=== PATIENT | female | born 1995 | race American Indian/Alaskan Native ===

== ENCOUNTER 2017-05-22 18:47 | Emergency (ER) | payer MEDICAID, OTHER ==
[2017-05-22 19:09] VITALS: BMI 34.9
[2017-05-22 21:26] VITALS: BP 128/68; PULSE 83; RESP 17; TEMP 98.6; O2SAT 98
--- NOTE | 2017-05-23 01:38 | ED PDOC ---
Arrival/HPI - General Chief Complaint: Abdominal Pain Time Seen by Provider: 05/22/17 20:14 Historian: Patient - History of Present Illness Narrative History of Present Illness (Text): 05/23/17 20:13 A 22 year old female, whose past medical history includes bronchitis and asthma , presents to the emergency department complaining of left anterior rib pain for 2 days. Patient reports she applied heat to pain area and it helped slightly. Afterwards, patient took Ibuprofen, which aided in relieving some pain. Patient denies any shortness of breath, cough, trauma, or any other complaints. No PMD Time/Duration: < week (2 days ago) Symptom Onset: Sudden Symptom Course: Unchanged Past Medical History - Provider Review Nursing Documentation Reviewed: Yes - Infectious Disease Hx of Infectious Diseases: None - Pulmonary Hx Asthma: Yes Hx Bronchitis: Yes - Psychiatric Hx Substance Use: Yes - Anesthesia Hx Anesthesia: No Family/Social History - Physician Review Nursing Documentation Reviewed: Yes Family/Social History: No Known Family HX Smoking Status: Current Some Days Smoker Hx Alcohol Use: Yes Frequency of alcohol use: Socially Hx Substance Use: Yes Substance used: marijuana Allergies/Home Meds Allergies/Adverse Reactions: Allergies No Known Allergies Allergy (Verified 05/22/17 19:08) Review of Systems - Physician Review All systems were reviewed & negative as marked: Yes - Review of Systems Constitutional: absent: Other (no trauma) Respiratory: absent: SOB, Cough Musculoskeletal: Other (left anterior rib pain) Physical Exam Vital Signs Reviewed: Yes Vital Signs Temp Pulse Resp BP Pulse Ox 05/22/17 21:24 98.6 F 83 17 128/68 98 05/22/17 19:11 98.7 F 81 18 124/72 97 Temperature: Afebrile Blood Pressure: Normal Pulse: Regular Respiratory Rate: Normal Appearance: Positive for: Well-Appearing Pain Distress: None Mental Status: Positive for: Alert and Oriented X 3 - Systems Exam Neck: Present: Normal Range of Motion Respiratory/Chest: Present: Clear to Auscultation, Good Air Exchange. No: Respiratory Distress, Accessory Muscle Use Cardiovascular: Present: Regular Rate and Rhythm, Normal S1, S2. No: Murmurs Abdomen: Present: Normal Bowel Sounds. No: Tenderness, Distention, Peritoneal Signs Back: Present: Normal Inspection Upper Extremity: Present: Tenderness (tenderness to 9th and 10th rib on anterior left side) Lower Extremity: Present: Normal Inspection. No: Edema Neurological: Present: GCS=15, CN II-XII Intact, Speech Normal Skin: Present: Warm, Dry, Normal Color. No: Rashes Psychiatric: Present: Alert, Oriented x 3, Normal Insight, Normal Concentration Medical Decision Making ED Course and Treatment: 05/23/17 20:15 Impression: 22 year old female with left anterior rib pain. Physical exam shows tenderness to 9th and 10th rib on anterior left side; everything else on examination is normal. Plan: -- Left Ribs X-Ray -- Flexiril -- Motrin Tab -- Reassess and disposition Progress Notes: 05/23/17 21:25 Left Ribs X-Ray findings are negative, revealing no pneumothorax and no fracture. - RAD Interpretation Radiology Orders: 05/22/17 20:15 RIBS LEFT & PA CHEST [RAD] Stat - Medication Orders Current Medication Orders: Discontinued Medications Cyclobenzaprine HCl (Flexeril) 10 mg PO STAT STA Stop: 05/22/17 20:16 Last Admin: 05/22/17 20:26 Dose: 10 mg Ibuprofen (Motrin Tab) 600 mg PO STAT STA Stop: 05/22/17 20:16 Last Admin: 05/22/17 20:26 Dose: 600 mg - Scribe Statement The provider has reviewed the documentation as recorded by the Lois Wyatt Provider Scribe Attestation: All medical record entries made by the Scribe were at my direction and personally dictated by me. I have reviewed the chart and agree that the record accurately reflects my personal performance of the history, physical exam, medical decision making, and the department course for this patient. I have also personally directed, reviewed, and agree with the discharge instructions and disposition. Disposition/Present on Arrival - Present on Arrival Any Indicators Present on Arrival: No History of DVT/PE: No History of Uncontrolled Diabetes: No Urinary Catheter: No History of Decub. Ulcer: No History Surgical Site Infection Following: None - Disposition Have Diagnosis and Disposition been Completed?: Yes Diagnosis: Rib pain on left side Disposition: HOME/ ROUTINE Disposition Time: 22:50 Condition: GOOD Discharge Instructions (ExitCare): Chest Pain (ED) Additional Instructions: Thank you for letting us take care of you today. The emergency medical care you received today was directed at your acute symptoms. If you were prescribed any medication, please fill it and take as directed. It may take several days for your symptoms to resolve. Return to the Emergency Department if your symptoms worsen, do not improve, or if you have any other problems. Please contact your doctor or call one of the physicians/clinics you have been referred to that are listed on the Patient Visit Information form that is included in your discharge packet. Bring any paperwork you were given at discharge with you along with any medications you are taking to your follow up visit. Our treatment cannot replace ongoing medical care by a primary care provider (PCP) outside of the emergency department. Thank you for allowing the [facility] team to be part of your care today. Follow up with your doctor in 2-3 days for re-evaluation and further management. Prescriptions: Cyclobenzaprine [Cyclobenzaprine HCl] 10 mg PO Q8 PRN #20 tab PRN Reason: Muscle Spasm Ibuprofen [Motrin] 600 mg PO Q6 PRN #20 tab PRN Reason: Pain, Moderate (4-7) Referrals: PCP,NO [Primary Care Provider] - Follow up with primary Forms: [employer] ([place])
--- NOTE | 2017-05-23 08:28 | RAD ---
PROCEDURE: Radiographs of the Chest and Left Ribs. HISTORY: tenderness to anterior 9th-10th rib COMPARISON: None available. TECHNIQUE: Frontal radiograph of the chest and multiple oblique radiographs of the left ribs were obtained. FINDINGS: LEFT RIBS: No fracture or focal lesion visualized. LUNGS: Clear. PLEURA: No pneumothorax or pleural fluid. CARDIOVASCULAR: Normal sized heart. No pulmonary vascular congestion. OTHER FINDINGS: None. IMPRESSION: Unremarkable radiographs of the chest and left ribs. No left rib fracture.
== END 2017-05-22 21:27 | disposition home or self-care (01) ==
LOC: ED 18:47 → MERGE 18:47 → ED 21:27
DX: R07.81 Pleurodynia (principal)